=== PATIENT | male | born 1955 | race Caucasian/White ===

== ENCOUNTER → 2016-08-15 | Outpatient (CLI) | payer OTHER ==
--- NOTE | 2016-08-15 11:53 | DX ---
Chest, Two Views 1123 hours History: Chronic cough. Comparison: None. Findings: Cardiac silhouette is within normal range. No pneumonia, congestive heart failure, pleura l effusion, or pneumothorax. Bilateral peribronchial thickening. Impression: 1. Bronchitis. 2. No focal pneumonia.
== END ==
LOC: BMCIMAGING 11:24
PROVIDERS: ATTEND Family Medicine
DX: J40 Bronchitis, not specified as acute or chronic (principal)